=== PATIENT | female | born 1945 | race Caucasian/White ===

== ENCOUNTER 2018-01-03 20:11 | Emergency (ER) | payer MEDICARE, BC ==
[2018-01-03] MEDS ORDERED: Acetaminophen/HYDROcodone 325-5 MG Tab PO ONE ×2 (21:33→23:10)
--- NOTE | 2018-01-03 23:16 | EDM.PDOC ---
ED HPI GENERAL MEDICAL PROBLEM - General Chief Complaint: Upper Extremity Injury/Pain Stated Complaint: R SHOULDER PAIN Time Seen by Provider: 01/03/18 21:28 Source of Information: Reports: Patient History Limitations: Reports: No Limitations - History of Present Illness INITIAL COMMENTS - FREE TEXT/NARRATIVE: This lady complains of right shoulder pain swelling and bruising. It began 3 days ago after she shoveled some snow. It started out with just a little bit of bruising in the right deltoid area and it is progressed said now there is a large area of bruising to the right upper arm. She says there is a lot of pain in the shoulder joint. She denies any kind of trauma. Right Arm Pain Score (Numeric/FACES): 8 - Related Data Allergies Allergy/AdvReac Type Severity Reaction Status Date / Time No Known Allergies Allergy Verified 09/27/14 10:46 Home Meds: Home Meds Betamethasone Dipropionate [Diprolene AF 0.05% Crm] 50 cm TP BID 01/23/16 [ History] Fluticasone Propionate [Flovent] 1 puff IH BID 01/23/16 [History] Multivitamin [Multi-Vitamin Daily] 1 each PO DAILY 01/23/16 [History] Houghton-3/DHA/Epa/Fish Oil [Houghton-3 Fish Oil 1,000 MG Sfgl] 1,000 mg PO DAILY [History] Simvastatin 10 mg PO DAILY 01/23/16 [History] Metoprolol Succinate [Toprol XL] 25 mg PO DAILY 01/03/18 [History] Past Medical History Cardiovascular History: Reports: Hypertension Social & Family History - Tobacco Use Smoking Status *Q: Never Smoker - Caffeine Use Caffeine Use: Reports: Coffee - Recreational Drug Use Recreational Drug Use: No Review of Systems - Review of Systems Review Of Systems: See Below Constitutional: Reports: No Symptoms Eyes: Reports: No Symptoms Ears: Reports: No Symptoms Nose: Reports: No Symptoms Mouth/Throat: Reports: No Symptoms Respiratory: Reports: No Symptoms Cardiovascular: Reports: No Symptoms GI/Abdominal: Reports: No Symptoms Musculoskeletal: Reports: Joint Pain Skin: Reports: Bruising ED EXAM, GENERAL - Physical Exam Exam: See Below Exam Limited By: No Limitations General Appearance: Alert, WD/WN, Mild Distress Extremities: Other (The right glenohumeral joint capsule appears to be distended and fairly taut consistent with a hemarthrosis. There is a large amount of bruising to the right upper arm from the deltoid almost down to the elbow. There is limited range of motion of the shoulder and the joint is mildly tender. Neurovascular tendon all normal to the right hand.) Course - Vital Signs Last Recorded V/S: Last Vital Signs Temp 36.6 C 01/03/18 20:28 Pulse 79 01/03/18 20:28 Resp 18 01/03/18 20:28 BP 179/99 H 01/03/18 20:28 Pulse Ox 95 01/03/18 20:28 - Orders/Labs/Meds Orders: Active Orders 24 hr Category Date Time Status Shoulder Comp Rt [CR] Stat Exams 01/03/18 21:34 Taken Meds: Medications Discontinued Medications Generic Name Dose Route Start Last Admin Trade Name Freq PRN Reason Stop Dose Admin Hydrocodone Bitart/Acetaminophen 1 tab 01/03/18 21:33 01/03/18 21:38 Pioneer 325-5 Mg PO 01/03/18 21:34 1 tab ONETIME ONE Administration Hydrocodone Bitart/Acetaminophen 1 tab 01/03/18 23:10 Pioneer 325-5 Mg PO 01/03/18 23:11 ONETIME ONE - Radiology Interpretation Free Text/Narrative:: X-ray shows no evidence of any kind of shoulder fracture or dislocation - Re-Assessments/Exams Free Text/Narrative Re-Assessment/Exam: 01/03/18 23:13 Patient did receive 2 tablets of the Narco 5/325 Departure - Departure Time of Disposition: 23:14 Disposition: Home, Self-Care 01 Condition: Fair Clinical Impression: Hemarthrosis, right shoulder - Discharge Information Referrals: Lavonne Coombs PA [Primary Care Provider] - Additional Instructions: Wear the sling for comfort. Remove the sling once or twice a day and do some gentle range of motion exercises. For pain take the Narco 5/325 one or 2 tablets every 4 hours. This can cause sedation so use caution. Apply ice for about 20 minutes several times a day. The bruising should gradually get better and the blood in the joint will be ready absorbed. See your Dr. if you're not obviously getting better in a few days. - My Orders Last 24 Hours: My Active Orders 01/03/18 21:34 Shoulder Comp Rt [CR] Stat - Assessment/Plan Last 24 Hours: My Active Orders 01/03/18 21:34 Shoulder Comp Rt [CR] Stat
--- NOTE | 2018-01-04 09:02 | CR ---
Shoulder Comp Rt HISTORY: pain bruising FINDINGS: No acute fracture or dislocation is identified. Bony structures are osteopenic. There are mild chastity nal osteophytes at the glenoid process of the scapula. AC joint is not widened. Soft tissues are unr emarkable. IMPRESSION: Degenerative changes. Osteopenia. No fracture or other acute shoulder abnormality is identified.
== END 2018-01-03 23:23 | disposition home or self-care (01) ==
LOC: JP.ED 20:11
DX: M25.011 Hemarthrosis, right shoulder (principal); I10 Essential (primary) hypertension; Z79.899 Other long term (current) drug therapy
CPT/HCPCS: 73030; 99284; A9270